=== PATIENT | male | born 1950 | race Two or more races ===

== ENCOUNTER 2021-09-01 10:39 | Inpatient (IN) | payer BC, MEDICARE ==
[~2021-09-01] VITALS: Ht 170.2 cm; Wt 77.1 kg
[2021-09-01] MEDS ORDERED: DEXTROSE 50% SYRINGE 50 ML IV PRN (12:15)
[2021-09-01 12:23] VITALS: BP 126/68
[2021-09-01] MEDS ORDERED: SIMVASTATIN20 MG PO (13:08)
[2021-09-01] MEDS ORDERED: SYNJARDY 12.5-1 EACH PO (13:08)
[2021-09-01 13:13] VITALS: BP 126/68
[2021-09-01 13:27] VITALS: BP 126/68
[2021-09-01] MEDS: ACETAMINOPHEN 325 MG TAB PO PRN ×2 (14:02→22:49)
[2021-09-01 14:05] LABS: BASOPHILS % 0.2 % (0.0-1.0); EOSINOPHILS % 0.2 % (0.0-6.0); HEMATOCRIT 42.3 % (38.2-49.6); LYMPHOCYTES # (AUTO) 2.2 (1.0-3.2); LYMPHOCYTES % 12.3 % (18.0-39.1); MEAN CORPUSCULAR HEMOGLOBIN 30.6 pg (28-32); MEAN CORPUSCULAR HGB CONC 33.1 g/dL (31-35); MEAN CORPUSCULAR VOLUME 92.4 fL (81-99); MONOCYTES # (AUTO) 1.4 (0.2-0.8); MONOCYTES % 7.9 % (4.4-11.3); NEUTROPHILS # (AUTO) 13.8 (2.1-6.9); NEUTROPHILS % 78.8 % (38.7-80.0); PLATELET COUNT 327 x10e3/uL (140-360); RED BLOOD COUNT 4.58 x10e6/uL (4.3-5.7); RED CELL DISTRIBUTION WIDTH 13.2 % (11.7-14.4)
[2021-09-01 14:24] LABS: ALBUMIN 3.2 g/dL (3.5-5.0); ALBUMIN/GLOBULIN RATIO 0.7 (0.8-2.0); CALCIUM 9.7 mg/dL (8.4-10.2); CREATININE, SERUM 1.1 mg/dL (0.72-1.25)
[2021-09-01] MEDS ORDERED: SODIUM CHLORIDE 0.9% 1000ML 1,000 ML IV ONE (14:45)
[2021-09-01] MEDS ORDERED: SODIUM CHLORIDE 0.9% 1000ML 1,000 ML ONE (14:53)
[2021-09-01 16:20] VITALS: BP 124/60
[2021-09-01] MEDS: INSULIN LISPRO 100 UNIT/1 ML 3ML VIAL SQ SCH ×2 (16:30→21:00)
[2021-09-01] MEDS ORDERED: ACETAMINOPHEN 1000 MG/100 ML IV STA (17:01)
[2021-09-01] MEDS: SODIUM CHLORIDE 0.9% 1000ML 1,000 ML IV SCH ×2 (17:45→20:01)
[2021-09-01 20:00] VITALS: BP 118/54
[2021-09-02] VITALS (7 sets, daily range): BP systolic 110–134; BP diastolic 46–75
[2021-09-02 05:48] LABS: BASOPHILS % 0.3 % (0.0-1.0); EOSINOPHILS # (AUTO) 0.1 (0.0-0.4); EOSINOPHILS % 0.4 % (0.0-6.0); HEMATOCRIT 39.4 % (38.2-49.6); HEMOGLOBIN 13.1 g/dL (14.0-18.0); LYMPHOCYTES # (AUTO) 1.9 (1.0-3.2); LYMPHOCYTES % 14.5 % (18.0-39.1); MEAN CORPUSCULAR HGB CONC 33.2 g/dL (31-35); MEAN CORPUSCULAR VOLUME 93.1 fL (81-99); MONOCYTES # (AUTO) 1.3 (0.2-0.8); MONOCYTES % 9.9 % (4.4-11.3); NEUTROPHILS # (AUTO) 9.9 (2.1-6.9); NEUTROPHILS % 74.3 % (38.7-80.0); PLATELET COUNT 323 x10e3/uL (140-360); RED BLOOD COUNT 4.23 x10e6/uL (4.3-5.7); RED CELL DISTRIBUTION WIDTH 13.2 % (11.7-14.4)
[2021-09-02 06:21] LABS: ALBUMIN 2.8 g/dL (3.5-5.0); ALBUMIN/GLOBULIN RATIO 0.7 (0.8-2.0); ANION GAP 13.9 mmol/L (8-16); CALCIUM 8.9 mg/dL (8.4-10.2); CREATININE, SERUM 1.13 mg/dL (0.72-1.25); POTASSIUM 3.9 mmol/L (3.5-5.1)
[2021-09-02] MEDS: CEFTRIAXONE 1 GM in SODIUM CHLORIDE 0.9% 50ML 50 ML IV SCH (08:01)
[2021-09-02] MEDS: METFORMIN HCL 500 MG TAB CR PO SCH ×2 (08:02→16:15)
[2021-09-02] MEDS: ACETAMINOPHEN 325 MG TAB PO PRN ×2 (08:18→15:50)
[2021-09-02] MEDS: INSULIN LISPRO 100 UNIT/1 ML 3ML VIAL SQ SCH ×4 (08:19→20:40)
[2021-09-02] MEDS ORDERED: SIMVASTATIN 20 MG TAB PO SCH (21:00)
[2021-09-03] VITALS: BP 124/56
[2021-09-03 04:00] VITALS: BP 109/69
[2021-09-03 06:18] LABS: BASOPHILS % 0.4 % (0.0-1.0); EOSINOPHILS # (AUTO) 0.1 (0.0-0.4); EOSINOPHILS % 1.2 % (0.0-6.0); HEMATOCRIT 40.7 % (38.2-49.6); HEMOGLOBIN 13.6 g/dL (14.0-18.0); LYMPHOCYTES # (AUTO) 2.1 (1.0-3.2); LYMPHOCYTES % 21.2 % (18.0-39.1); MEAN CORPUSCULAR HEMOGLOBIN 30.4 pg (28-32); MEAN CORPUSCULAR HGB CONC 33.4 g/dL (31-35); MEAN CORPUSCULAR VOLUME 91.1 fL (81-99); MONOCYTES % 9.8 % (4.4-11.3); NEUTROPHILS # (AUTO) 6.5 (2.1-6.9); NEUTROPHILS % 66.8 % (38.7-80.0); PLATELET COUNT 394 x10e3/uL (140-360); RED BLOOD COUNT 4.47 x10e6/uL (4.3-5.7); RED CELL DISTRIBUTION WIDTH 13.5 % (11.7-14.4)
[2021-09-03 06:53] LABS: CALCIUM 9.7 mg/dL (8.4-10.2); CREATININE, SERUM 1.08 mg/dL (0.72-1.25); MAGNESIUM 2.3 MG/DL (1.3-2.1)
[2021-09-03] MEDS: INSULIN LISPRO 100 UNIT/1 ML 3ML VIAL SQ SCH (07:30)
[2021-09-03] MEDS: METFORMIN HCL 500 MG TAB CR PO SCH (08:00)
[2021-09-03 08:10] VITALS: BP 113/62
[2021-09-03 08:26] VITALS: BP 113/62
[2021-09-03] MEDS ORDERED: AUGMENTIN 875-1 EACH PO (08:43)
[2021-09-03] MEDS: CEFTRIAXONE 1 GM in SODIUM CHLORIDE 0.9% 50ML 50 ML IV SCH (08:56)
== END 2021-09-03 10:12 | disposition home or self-care (01) | DRG 194 ==
LOC: MED/SURG3 11:56
PROVIDERS: ADMIT Internal Medicine; ATTEND Internal Medicine
DX: J18.9 Pneumonia, unspecified organism (principal); E87.2 Acidosis; E11.9 Type 2 diabetes mellitus without complications; Z87.891 Personal history of nicotine dependence; Z20.822 Contact with and (suspected) exposure to COVID-19
CPT/HCPCS: 36415; 71046; 80048; 80053; 82948; 83036; 83605; 83735; 85025; 87040; 99251; J0456; J0696; J7030; J7050; U0002